=== PATIENT | female | born 2000 | race Caucasian/White ===

== ENCOUNTER 2020-05-16 03:12 | Emergency (ER) | payer MEDICAID ==
--- NOTE | 2020-05-16 03:46 | ED Physician Documentation ---
History of Present Illness - Stated complaint Stated Complaint: F /CRAMPS - Chief complaint Chief Complaint: General - History obtained from History obtained from: Patient - Additonal information Additional information: Otherwise healthy 20-year-old female who reports she started her period and she noticed some thick tissue and wants to know "what is coming out of her vagina".Patient denies any pain currently. She reports the first day of her last menstrual period was 4 days ago. She denies any history of denies any history of sexually transmitted disease she is currently in a monog amous relationship. Denies any pelvic pain or dysuria or hematuria. Denies any known history of HPV or any STD infections. Review of Systems Constitutional: reports: Reviewed and negative Eyes: reports: Reviewed and negative Ears: reports: Reviewed and negative Nose: reports: Reviewed and negative Throat: reports: Reviewed and negative Cardiac: reports: Reviewed and negative Respiratory: reports: Reviewed and negative GI: reports: Reviewed and negative : reports: Vaginal bleeding, Irregular menses Skin: reports: Reviewed and negative Musculoskeletal: reports: Reviewed and negative Neurologic: reports: Reviewed and negative Psychiatric: reports: Reviewed and negative Endocrine: reports: Reviewed and negative Immunocompromised: reports: Reviewed and negative PD ED PE NORMAL - Vitals Vital signs reviewed: Yes - General General: Alert and oriented X 3, No acute distress - HEENT HEENT: PERRL - Neck Neck: Supple, no meningeal sign - Cardiac Cardiac: RRR, No murmur - Respiratory Respiratory: Clear bilaterally - Abdomen Abdomen: Normal bowel sounds, Soft, Non tender, Non distended - Female Female : Pt declined - Rectal Rectal: Pt declined - Derm Derm: Warm and dry - Extremities Extremities: No deformity - Neuro Neuro: Alert and oriented X 3 - Psych Psych: Normal mood, Normal affect Results - Vitals Vitals: Vital Signs - 24 hr 05/16/20 05/16/20 03:19 05:02 Temperature 36.8 C 37.1 C Heart Rate 81 71 Respiratory 20 17 Rate Blood Pressure 151/100 H 118/81 H O2 Saturation 99 99 Oxygen O2 Source Room air - Labs Labs: Laboratory Tests 05/16/20 04:00 Urine Color YELLOW Urine Clarity CLEAR Urine pH 8.5 H Ur Specific [place] 1.020 Urine Protein NEGATIVE Urine Glucose (UA) NEGATIVE Urine Ketones NEGATIVE Urine Occult Blood NEGATIVE Urine Nitrite NEGATIVE Urine Bilirubin NEGATIVE Urine Urobilinogen 1 (NORMAL) Ur Leukocyte Esterase NEGATIVE Ur Microscopic Review NOT INDICATED Urine Culture Comments NOT INDICATED Urine HCG, Qual NEGATIVE PD MEDICAL DECISION MAKING - ED course Complexity details: reviewed results, d/w patient ED course: Otherwise healthy 20-year-old female presents with vaginal bleeding and irregular menses and some sort of abnormal discharge. I did recommend transvaginal ultrasound as well as pelvic exam however the patient is refusing she is afebrile and well-appearing and she has good follow-up tomorrow with her PCP patient would like to be discharged home. Urinalysis shows no sign of infection urine test is negative she is asymptomatic currently. Departure - Departure Disposition: 01 Home, Self Care Clinical Impression: Vaginal bleeding Condition: Stable Instructions: ED Bleed Irregular Vaginal Follow-Up: AMAYA ERVIN PA-C [Primary Care Provider] - As Needed Comments: Avoid tampons for the next week, use pads as needed. Follow up with your PCP as needed or return to the emergency department with any concerns. Discharge Date/Time: 05/16/20 05:03
[2020-05-16 04:23] LABS: BILIRUBIN,URINE NEGATIVE (NEGATIVE); GLUCOSE, URINE (UA) NEGATIVE (NEGATIVE); KETONES,URINE (UA) NEGATIVE (NEGATIVE); LEUKOCYTE ESTERASE, URINE NEGATIVE (NEGATIVE); NITRITE,URINE NEGATIVE (NEGATIVE); OCCULT BLOOD,URINE NEGATIVE (NEGATIVE); PH,URINE 8.5 PH (5.0-7.5); PROTEIN,URINE NEGATIVE (NEGATIVE); UROBILINOGEN,URINE 1 (NORMAL) E.U./dL (NORMAL)
[2020-05-16 04:27] LABS: CLARITY,URINE CLEAR (CLEAR); HCG UR QUAL NEGATIVE
[2020-05-16 05:03] VITALS: BP 118/81
== END 2020-05-16 05:03 | disposition home or self-care (01) ==
LOC: ED 03:12
DX: N93.9 Abnormal uterine and vaginal bleeding, unspecified (principal); N89.8 Other specified noninflammatory disorders of vagina
CPT/HCPCS: 81001; 81003; 81025; 87086; 99282; 99283